=== PATIENT | female | born 1985 | race African-American/Black ===

== ENCOUNTER 2016-12-11 01:38 | Inpatient (IN) | payer MEDICAID ==
[~2016-12-11] VITALS: Ht 177.8 cm; Wt 92.0 kg
[2016-12-11] MEDS: D5%-LACTATED RINGERS 1,000 ML IV SCH ×2 (01:43→09:43)
[2016-12-11] MEDS ORDERED: OXYTOCIN 30U/ 0.9% NaCL 500ML 500 ML IV ONE (01:43)
[2016-12-11] MEDS ORDERED: NEWBORN KIT ONE (01:45)
[2016-12-11] MEDS ORDERED: FENTANYL PF 100 MCG/2ML ONE ×2 (01:49→02:42)
[2016-12-11 02:00] VITALS: BP 132/84
[2016-12-11] MEDS: LACTATED RINGERS 1,000 ML IV SCH ×4 (02:00→11:35)
[2016-12-11] MEDS: FENTANYL PF 100 MCG/2ML IVPush PRN ×2 (02:00→03:14)
[2016-12-11] MEDS ORDERED: FENTANYL PF 100 MCG/2ML IV PRN (02:00)
[2016-12-11] MEDS ORDERED: ONDANSETRON 2MG/ML, 2ML IVPush PRN (02:00)
[2016-12-11] MEDS ORDERED: CALCIUM CARBONATE 500 MG TAB.CHEW PO PRN ×2 (02:00→09:00)
[2016-12-11] MEDS ORDERED: FENTANYL/BUPIV./NS/PF 250 ML EPIDCONT ONE ×2 (03:33→03:38)
[2016-12-11] MEDS ORDERED: BUPIVACAINE/PF 0.25% ONE ×2 (03:34→03:38)
[2016-12-11] MEDS ORDERED: FENTANYL/BUPIV./NS/PF 250 ML EPIDCONT SCH (03:35)
[2016-12-11] MEDS ORDERED: LIDOCAINE 2%, 10ML ONE (03:38)
[2016-12-11] MEDS ORDERED: LACTATED RINGERS 1,000 ML IVBOLUS PRN (04:00)
[2016-12-11] MEDS ORDERED: EPHEDRINE 50 MG/ML, 1ML IVPush PRN (04:00)
[2016-12-11] MEDS ORDERED: NALOXONE 0.4 MG/ML, 1ML IVPush PRN (04:00)
[2016-12-11] MEDS ORDERED: MISOPROSTOL 200 MCG TABLET ONE (07:39)
[2016-12-11] MEDS ORDERED: LIDOCAINE/MPF 2%-EPI 1:200K, 20 ML ONE (07:46)
[2016-12-11] MEDS ORDERED: CEFAZOLIN 1,000 MG ONE (07:55)
[2016-12-11] MEDS ORDERED: OXYTOCIN 10 UNITS/ML, 1ML ONE (07:55)
[2016-12-11] MEDS ORDERED: OXYTOCIN 30U/ 0.9% NaCL 500ML 500 ML IV SCH (08:40)
[2016-12-11] MEDS ORDERED: OXYcodone/APAP 5/325MG TABLET PO PRN ×2 (09:00)
[2016-12-11] MEDS ORDERED: ONDANSETRON 2MG/ML, 2ML IV PRN (09:00)
[2016-12-11] MEDS ORDERED: CARBOPROST TROMETHAMINE 250 MCG/ML, 1ML IM PRN (09:00)
[2016-12-11] MEDS ORDERED: BISACODYL 10 MG SUPP PR PRN (09:00)
[2016-12-11] MEDS ORDERED: MISOPROSTOL 200 MCG TABLET PR PRN (09:00)
[2016-12-11] MEDS ORDERED: ACETAMINOPHEN 325 MG TABLET PO PRN ×2 (09:00)
[2016-12-11] MEDS: PRENATAL VIT/IRON/FA 1 EACH TABLET PO SCH (09:00)
[2016-12-11] MEDS ORDERED: METOCLOPRAMIDE 5 MG/ML, 2ML IV PRN (09:00)
[2016-12-11] MEDS ORDERED: GLYCERIN ADULT SUPP PR PRN (09:00)
[2016-12-11] MEDS ORDERED: OXYTOCIN 10 UNITS/ML, 1ML IM PRN (09:00)
[2016-12-11] MEDS ORDERED: METHYLERGONOVINE 0.2 MG/ML IM PRN (09:00)
[2016-12-11] MEDS ORDERED: DOCUSATE 100 MG CAPSULE PO PRN (09:00)
[2016-12-11] MEDS ORDERED: MAGNESIUM HYDROXIDE 8%, 30ML UDC PO PRN (09:00)
[2016-12-11 11:15] VITALS: BP 119/79
[2016-12-11] MEDS: IBUPROFEN 600 MG TABLET PO PRN ×3 (11:41→23:28)
[2016-12-11 20:10] VITALS: BP 138/90
[2016-12-12 00:01] VITALS: BP 117/71
[2016-12-12 04:00] VITALS: BP 110/75
[2016-12-12] MEDS: IBUPROFEN 600 MG TABLET PO PRN (05:16)
[2016-12-12 07:55] VITALS: BP 117/68
[2016-12-12] MEDS: PRENATAL VIT/IRON/FA 1 EACH TABLET PO SCH (08:59)
[2016-12-12] MEDS ORDERED: OXYC-302 PO (12:08)
[2016-12-12] MEDS ORDERED: IBUP800T PO (12:09)
== END 2016-12-12 12:33 | disposition home or self-care (01) | DRG 767 ==
LOC: LDOP 01:38 → LDIP 01:39 → 2NW 11:15
PROVIDERS: ADMIT Obstetrics & Gynecology; ATTEND Obstetrics & Gynecology
PROC: 10D17ZZ Extraction of Products of Conception, Retained, Via Natural or Artificial Opening (ICD-10-PCS; principal; 2016-12-11)
PROC: 10E0XZZ Delivery of Products of Conception, External Approach (ICD-10-PCS; 2016-12-11)
PROC: 3E0R3CZ (ICD-10-PCS; 2016-12-11)
PROC: 00HU33Z Insertion of Infusion Device into Spinal Canal, Percutaneous Approach (ICD-10-PCS; 2016-12-11)
DX: O69.81X0 Labor and delivery complicated by cord around neck, without compression, not applicable or unspecified (principal); O72.0 Third-stage hemorrhage; O99.89 Other specified diseases and conditions complicating pregnancy, childbirth and the puerperium; Z37.0 Single live birth; M79.7 Fibromyalgia; Z3A.38 38 weeks gestation of pregnancy; O90.81 Anemia of the puerperium; D64.9 Anemia, unspecified
CPT/HCPCS: 36415; 85025; 86850; 86900; J0690; J3010; J3490; J2590; J7120